=== PATIENT | female | born 1995 | race Caucasian/White ===

== ENCOUNTER 2020-02-21 16:28 | Emergency (ER) | payer MEDICAID ==
[~2020-02-21] VITALS: Ht 165.1 cm; Wt 72.9 kg
[2020-02-21 16:40] VITALS: BP 110/68
--- NOTE | 2020-02-21 18:35 | NUR ---
pt to room from lobby
--- NOTE | 2020-02-21 18:43 | NUR ---
PT CAME IN CO OF VICTORIANOD, SALEEM, BODY ACHES X 2 DAYS. SAYS " I HAVENT BEEN ABLE TO HOLD ANYTHING DOWN. MY ABD HURTS FROM VOMITTING SO MUCH." PT DENIES PAINFUL URINATION OR OTHER URINARY SYMPTOMS. PT IS RESTING IN RNEY. WARM BLANKETS PROVIDED.
[2020-02-21] MEDS ORDERED: ONDANSETRON ODT 4 MG ONE (19:35)
[2020-02-21 19:45] LABS: HCG UR SG 1.036 (1.003-1.030); MICROSCOPIC INDICATED
[2020-02-21] MEDS ORDERED: ONDANSETRON 4 MG TABLET PO ONE (20:00)
[2020-02-21 20:07] LABS: BASOPHILS # (AUTO) 0.03 x10^3/uL (0-0.1); BASOPHILS % (AUTO) 0 % (0-1); EOSINOPHILS # (AUTO) 0.01 x10^3/uL (0-0.4); EOSINOPHILS % (AUTO) 0 % (1-7); LYMPHOCYTES # (AUTO) 1.77 x10^3/uL (1-3.4); LYMPHOCYTES % (AUTO) 22 % (22-44); MD NO; MEAN CORPUSCULAR HEMOGLOBIN 29.6 pg (27.0-34.8); MEAN CORPUSCULAR HGB CONC 32.9 g/dL (32.4-35.8); MEAN CORPUSCULAR VOLUME 90.2 fL (80-100); MEAN PLATELET VOLUME 7.8 fL (7.4-10.4); MONOCYTES # (AUTO) 0.59 x10^3/uL (0.2-0.8); MONOCYTES % (AUTO) 7 % (2-9); NEUTROPHILS # (AUTO) 5.68 x10^3/uL (1.8-6.8); NEUTROPHILS % (AUTO) 70 % (42-75); PLATELET COUNT 296 x10^3/uL (130-400); RED BLOOD COUNT 4.58 x10^6/uL (3.82-5.3); RED CELL DISTRIBUTION WIDTH 12.6 % (9.6-15.2)
[2020-02-21 20:19] LABS: ALANINE AMINOTRANSFERASE 23 U/L (12-78); ANION GAP 7 mmol/L (5-15); CALCIUM 9.4 mg/dL (8.5-10.1); CHLORIDE 111 mmol/L (98-107); CREATININE 0.78 mg/dL (0.55-1.02)
[2020-02-21 20:21] LABS: ALKALINE PHOSPHATASE 102 U/L (45-117); BILIRUBIN,TOTAL 0.5 mg/dL (0.2-1.0); TOTAL PROTEIN 7.6 g/dL (6.4-8.2)
== END 2020-02-21 20:45 | disposition home or self-care (01) ==
LOC: ED 20:00
DX: R10.84 Generalized abdominal pain (principal); R11.2 Nausea with vomiting, unspecified; R19.7 Diarrhea, unspecified
CPT/HCPCS: 36415; 80053; 81001; 81025; 83690; 85025; 87086; 99283